=== PATIENT | female | born 1975 | race African-American/Black ===

== ENCOUNTER 2016-10-03 11:03 | Inpatient (IN) | payer OTHER ==
[~2016-10-03] VITALS: Ht 154.9 cm; Wt 73.9 kg
--- NOTE | ~2016-10-03 | CT2 ---
[facility] A Service of [facility] RADIOLOGY TEXT RESULTS PATIENT: CHAN WHITAKER LOCATION: C2A 242-01 : [birth year] UNIT #: [id number] AGE: [address]: Ruben Oneill MD SEX: F ORDER DR: [id number] [facility] [address] [place], [place] [address] [id number] I MR#: [id number] Acc #: [id number] NAME: CHAN WHITAKER : 1975 SEX: F STUDY DATE/TIME: 10/03/2016 15:44 UNIT: C2A ROOM: 242 STUDY DESCRIPTION: CT Abd and Pelv W Cont Attending Physician: Ruben Oneill M.D. Ordering Physician: Anthony Sosa M.D. Primary Care Physician: Katelyn Saeed A.P.R.N. MEDICAL IMAGING REPORT This report is preliminary unless electronic signature is present EXAMINATION CT abdomen and pelvis with contrast. DATE 10/03/2016 HISTORY 41-year-old female with abdominal pain, nausea, vomiting and diarrhea for 2 days. History of Crohn disease, hiatal hernia, hypertension and previous hysterectomy. COMPARISON CT of abdomen and pelvis with contrast 12/08/2015. TECHNIQUE This CT exam was performed with one or more of the following radiation dose reduction techniques: automatic exposure control, adjustment of mA and/or kV according to patient size, and iterative reconstruction. FINDINGS ABDOMEN FINDINGS: The colon is not opacified with enteric contrast at the time of image acquisition. The appendix is visualized, however, it appears normal. There is mild generalized air-fluid distension of multiple large and small bowel loops without evidence of high-grade obstruction. The distal ileum appears to have mild mucosal hyperenhancement and appears slightly narrowed, which may reflect changes of terminal ileitis in this patient with known history of Crohn disease. There is a second segment of small bowel within the midline of the abdomen which also appears to have generalized wall and fold thickening. No pneumatosis. No abscess. No free air. Lung bases are free of consolidation. Focal hepatic steatosis near the falciform ligament of the liver. Gallbladder, spleen, pancreas, adrenals STS. [facility] A Service of [facility] & [facility] RADIOLOGY TEXT RESULTS PATIENT: CHAN WHITAKER LOCATION: [facility] 242-01 : [birth year] UNIT #: [id number] AGE: [address]: Ruben Oneill MD SEX: F ORDER DR: and kidneys are within normal limits. PELVIS FINDINGS: Urinary bladder and rectum are normal. Hysterectomy. IMPRESSION 1. Short segments of mildly thickened and suspected inflamed small bowel in the midline of the abdomen and in the distal ileum may represent active small bowel inflammation in this patient with known history of Crohn disease. 2. No abscess. No evidence of high-grade bowel obstruction. No fistula. Dictated by... Lisa Cruz M.D. THIS IS AN ELECTRONICALLY VERIFIED REPORT Lisa Cruz M.D. at 10/04/2016 2:03 PM WILBUR/lisandra TD: 10/03/2016 22:37 JOB #: [id number] MEDICAL IMAGING REPORT Page 1 of 1 COPY
--- NOTE | ~2016-10-03 | CO ---
Unit #: [id number] #: [id number] Patient: CHAN HANCOCK [id number] [address] [address] [id number] I MR#: [id number] NAME: CHAN HANCOCK ROOM: 242 Age: 41 Sex: F Admission Date: 10/03/2016 : 1975 Attending Physician: Ruben Oneill M.D. Primary Care Physician: Claudia Saeed Consultation Date: 10/04/2016 CONSULTATION REPORT REASON FOR CONSULTATION Diarrhea and abdominal pain. HISTORY OF PRESENTING ILLNESS Ms. Hancock is a 41-year-old female. She has history of ulcerative colitis, which has been in remission. Four days ago, she started with abdominal pain and diarrhea, generalized abdominal pain, some distention, is moderate to severe in intensity. She has some nausea and vomiting also. There has not been any blood in the stool. She denies any fever or chills. She denies any recent antibiotic use or sick contacts. She has been on Asacol and Bentyl at home. PAST MEDICAL HISTORY Significant for ulcerative colitis, hypertension, migraine headaches. She is status post hysterectomy. Last colonoscopy was in 2016. SOCIAL HISTORY Smoker. Denies alcohol or drug abuse. FAMILY HISTORY Noncontributory. ALLERGIES None. REVIEW OF SYSTEMS Complete 10-point review of systems was done, which is negative other than as mentioned above. PHYSICAL EXAMINATION VITAL SIGNS: Stable. Afebrile. No acute distress. Temperature 97.8, pulse 89, blood pressure 114/93. HEENT: Pupils equal and reactive. Sclerae anicteric. Oral mucosa moist. NECK: No JVD. No lymphadenopathy. CHEST: Clear to auscultation bilaterally. CARDIOVASCULAR: Regular rate and rhythm. No murmurs. ABDOMEN: Significantly distended, gaseous. Mild tenderness. No guarding or rebound. No organomegaly or ascites. EXTREMITIES: Without clubbing, cyanosis, or edema. NEUROLOGIC: Intact grossly. SKIN: Warm and dry. DIAGNOSTIC STUDIES LABORATORY RESULTS: Hemoglobin and white count are normal. Chemistries Unit #: [id number] #: [id number] Patient: CHAN HANCOCK are unremarkable. IMAGING STUDIES: CT scan shows a small bowel inflammation in mid small bowel, possibility of Crohn disease was kept. She has over distention of both small and large bowel with no clear obstruction. ASSESSMENT AND PLAN The patient with possible flare up of ulcerative colitis, oblique Crohn disease. We will continue with steroids and antibiotics for now. I will get another KUB to look for any worsening small-bowel obstruction. We will keep her n.p.o. for now. Based on her progression, I will consider small bowel follow-through over next few days once the symptoms come down. We will continue with pain control also. Thank you, Dr. Oneill for this interesting consult. We will follow along. Dictated by... Aide Moore/troy TD: 10/04/2016 16:00 JOB #: [id number] CONSULTATION REPORT Page 1 of 1 X Beny Jung MD X CONSULTATION REPORT
--- NOTE | ~2016-10-03 | HP ---
Unit #: [id number] #: [id number] Patient: CHAN WHITAKER [id number] [facility]. [place], [place] [address] [id number] I MR#: [id number] NAME: CHAN WHITAKER ROOM: 58820 Age: 41 Sex: F Admission Date: 10/03/2016 : 1975 Attending Physician: Ruben Oneill M.D. Primary Care Physician: Katelyn Saeed A.P.R.N. HISTORY AND PHYSICAL CHIEF COMPLAINT Abdominal pain. HISTORY OF PRESENT ILLNESS The patient is a 41-year-old female who presents to the [place] emergency department with a complaint of abdominal pain. She states she ran out of her Crohn's medications three days ago. Since that time she has had progressive abdominal pain, now severe, associated with distention. No alleviating factors. She has had multiple episodes of bloody diarrhea. PAST MEDICAL HISTORY 1. Crohn disease. 2. Hypertension. 3. Goiter. 4. Migraines. PAST SURGICAL HISTORY Hysterectomy. SOCIAL HISTORY The patient smokes, drinks alcohol occasionally, denies illicit drug use. FAMILY HISTORY Diabetes, hyperlipidemia and cancer. ALLERGIES No known drug allergies. HOME MEDICATIONS Asacol, dicyclomine and Bentyl. REVIEW OF SYSTEMS A 10-point review of systems was obtained, negative except as per HPI. PHYSICAL EXAMINATION VITAL SIGNS: Temperature 97.8. Pulse 89. Blood pressure 114/93. GENERAL: A 41-year-old female in no acute distress, who appears stated age. HEENT: Pupils are equally round. Extraocular movements intact. Mucous membranes dry. NECK: Supple. No JVD. No lymphadenopathy. CARDIAC: Regular rate and rhythm. No murmurs, gallops or rubs. LUNGS: Clear to auscultation bilaterally. Unit #: [id number] #: [id number] Patient: CHAN WHITAKER ABDOMEN: Diffusely tender to palpation. It is distended but soft. EXTREMITIES: No cyanosis, clubbing or edema. They are warm and dry. PSYCHIATRIC: Alert and oriented x3. Affect is appropriate. NEUROLOGICAL: Cranial nerves II-XII intact grossly. The patient moves all extremities equally and with purpose. SKIN: No rashes, bruises or ulcers. MUSCULOSKELETAL: No muscle or joint pain. No muscle or joint swelling. DIAGNOSTIC STUDIES LABORATORY: Potassium 2.9, otherwise chemistries are normal. CBC is normal. Urine test is negative. ASSESSMENT AND PLAN 1. Crohn's flare: I have started the patient on IV steroids and Flagyl. Morphine for pain. 2. Hypokalemia: I have started the patient on potassium and magnesium protocol. 3. Prophylaxis: The patient has been started on SCDs. Dictated by Ruben Oneill M.D. KANDACE/hilda TD: 10/03/2016 20:28 JOB #: [id number] HISTORY AND PHYSICAL Page 1 of 1 X Ruben Oneill MD X HISTORY AND PHYSICAL
--- NOTE | ~2016-10-03 | DS ---
Unit #: [id number] #: [id number] Patient: CHAN WHITAKER [id number] [address] [address] [id number] I MR#: [id number] NAME: CHAN WHITAKER ROOM: 242 Age: 41 Sex: F Admission Date: 10/03/2016 : 1975 Discharge Date: 10/08/2016 Attending Physician: Ruben Oneill M.D. Primary Care Physician: Claudia Saeed DISCHARGE SUMMARY DISCHARGE DIAGNOSES 1. Crohn flare. 2. Acute pain. HOSPITAL COURSE Patient is a 41-year-old female admitted October 03, 2016, secondary to abdominal pain. She noted onset of symptoms after running out of her Crohn medication three days prior. She described the pain as severe and it was associated with multiple episodes of bloody diarrhea. Patient was admitted as CT showed findings consistent with inflammatory bowel disease. Patient was started on IV steroids and antibiotics. She received IV morphine for her pain. The patient's diarrhea resolved quickly on IV steroids and the patient did then become somewhat constipated. She underwent small bowel follow through which showed normal small bowel without evidence of any luminal narrowing, stricture, or abnormality. Given resolution of her symptoms and toleration of a diet, the patient is being discharged home on prednisone taper and Flagyl. Prescription has been provided for her Asacol. DISCHARGE MEDICATIONS 1. Bentyl 20 mg p.o. daily. 2. Asacol 800 mg daily. 3. Omeprazole 40 mg daily. 4. Flagyl 500 mg p.o. t.i.d. 5. Prednisone taper. DISCHARGE DIET As tolerated. FOLLOWUP The patient should follow up with Dr. Jung as needed. Dictated by... Ruben Oneill M.D. [facility]/ Unit #: [id number] #: [id number] Patient: CHAN WHITAKER TD: 10/09/2016 16:32 JOB #: [id number] DISCHARGE SUMMARY Page 1 of 1 X Ruben Oneill MD X DISCHARGE SUMMARY
--- NOTE | ~2016-10-03 | CR4 ---
[facility] A Service of [facility] & [facility] RADIOLOGY TEXT RESULTS PATIENT: CHAN WHITAKER LOCATION: C2A 242-01 : [birth year] UNIT #: [id number] AGE: [address]: Ruben Oneill MD SEX: F ORDER DR: [id number] [facility] [address] [place], [place] [address] [id number] I MR#: [id number] Acc #: [id number] NAME: CHAN WHITAKER : 1975 SEX: F STUDY DATE/TIME: 10/04/2016 14:52 UNIT: C2A ROOM: 242 STUDY DESCRIPTION: CR Abdomen Flat Upright or Dec Attending Physician: Ruben Oenill M.D. Ordering Physician: Beny Jung M.D. Primary Care Physician: Claudia Win Aprn [facility] MEDICAL IMAGING REPORT This report is preliminary unless electronic signature is present EXAM Supine upright radiographs of the abdomen and pelvis 10/04/2016 HISTORY Abdomen pain, distension, diarrhea. History of Crohn disease and hernia. FINDINGS Comparison to CT abdomen and pelvis 10/03/2016. The visualized pulmonary parenchyma is clear. Heart [id number] limits of normal in size. The bowel gas pattern shows air distended loops of small bowel and colon throughout the abdomen and pelvis with air seen throughout the colon to the rectum. Similar appearance on CT examination yesterday. The loop of inflamed thickened distal ileum is not identified on the plain radiograph. There is no indication of high-grade small bowel obstruction. The air distended loops of small bowel and colon could be a reflection of mild generalized ileus. Of note the patients oral contrast load from yesterday's study is not evident on the current radiograph also favoring the lack of any significant obstruction. There is no free air. Where visible the solid organ contours are unremarkable. Dictated by... Clayton Cruz M.D. THIS IS AN ELECTRONICALLY VERIFIED REPORT Clayton Cruz M.D. at 10/07/2016 5:44 PM VOLODYMYR/jessica TD: 10/05/2016 04:03 JOB #: [id number] MEDICAL IMAGING REPORT Page 1 of 1 COPY
--- NOTE | ~2016-10-03 | CR236 ---
[facility] A Service of [facility] & [facility] RADIOLOGY TEXT RESULTS PATIENT: CHAN WHITAKER LOCATION: A 242-01 : [birth year] UNIT #: [id number] AGE: [address]: Ruben Oneill MD SEX: F ORDER DR: [id number] [facility] [address] [place], [place] [address] [id number] I MR#: [id number] Acc #: [id number] NAME: CHAN WHITAKER : 1975 SEX: F STUDY DATE/TIME: 10/07/2016 10:43 UNIT: C2A ROOM: [facility] STUDY DESCRIPTION: CR Small Bowel Sbft W Films Attending Physician: Ruben Oneill M.D. Ordering Physician: Beny Jung M.D. Primary Care Physician: Katelyn Saeed A.P.R.N. MEDICAL IMAGING REPORT This report is preliminary unless electronic signature is present EXAM Small bowel follow through, date of study 10/07/2016 HISTORY Crohn disease, lower abdominal pain for 2 days, diarrhea. FINDINGS There is no dilated or thickened or irregular loops of small bowel. The terminal ileum is normal. The patient is certainly tender in the right lower quadrant but without radiographic correlate. IMPRESSION Tenderness in the right lower quadrant but otherwise normal small bowel follow through without evidence of luminal narrowing, stricture or other abnormality. Dictated by... Jeffery Mast M.D. THIS IS AN ELECTRONICALLY VERIFIED REPORT Jeffery Mast M.D. at 10/11/2016 4:54 PM TEV/psc TD: 10/08/2016 03:50 JOB #: [id number] MEDICAL IMAGING REPORT Page 1 of 1 COPY
[~2016-10-03 11:03] MED LIST: ASACOL HD800 MG; BACLOFEN10 MG PO; BENTYL10 M1; BENTYL20 M1 PO; CATAPRES-TTS-20.2 M1; IMITREX; LISINOPRIL PO; NEURONTIN100 MG PO; PEPCID AC20 M2 PO; PROPRANOLOL HCL10 MG; PROPRANOLOL HCL10 MG PO; ZOFRAN ODT4 MG PO
[2016-10-03 11:57] LABS: BASOPHIL% 0.6 % (0-2.5); DIFF IND NO; EOSINOPHIL# 0.1 X10e3 (0-0.7); EOSINOPHIL% 2.5 % (0.0-7.0); HEMATOCRIT 44.9 % (35.0-45.0); HEMOGLOBIN 14.7 gm/dL (12.0-16.0); LYMPHOCYTE# 1.6 X10e3 (1.0-3.5); LYMPHOCYTE% 27.9 % (17.0-45.0); MEAN CORPUSCULAR HEMOGLOBIN 28.1 PG (28-34); MEAN CORPUSCULAR HGB CONC 32.6 g/dL (30-36); MEAN PLATELET VOLUME 7.8 FL (6.5-11.5); MONOCYTE# 0.6 X10e3 (0-1.0); MONOCYTE% 11.1 % (3.0-12.0); NEUTROPHIL# 3.4 X10e3 (1.5-7.1); NEUTROPHIL% 57.9 % (40-75); PLATELET COUNT 278 X10e3 (140-420); RED BLOOD COUNT 5.22 X10e (3.90-5.30); RED CELL DISTRIBUTION WIDTH 14.5 % (11.0-15.5); WHITE BLOOD COUNT 5.8 X10e3 (4.0-10.5)
[2016-10-03 12:17] LABS: ALBUMIN SERUM 3.9 g/dL (3.5-5.0); BILIRUBIN, DIRECT 0.1 mg/dL (0.0-0.2); BILIRUBIN,TOTAL 0.1 mg/dL (0.2-2.0); BUN/CREATININE RATIO 23.33; CALCIUM SERUM 9.1 mg/dL (8.4-10.2); CREATININE SERUM 0.6 mg/dL (0.6-1.4); GLOM FILT RATE Estimated 133.1 mL/min (>60); PROTEIN TOTAL SERUM 7.3 g/dL (6.0-8.3)
[2016-10-03 12:18] LABS: POTASSIUM 2.9 mmol/L (3.5-5.1)
[2016-10-03 13:38] LABS: URINE SOURCE CLEAN CATCH
[2016-10-03 13:47] LABS: URINE APPEARANCE CLEAR; URINE BILIRUBIN NEG (NEG); URINE BLOOD 1+ (NEG); URINE COLOR DK YELLOW; URINE GLUCOSE NEG (NEG); URINE KETONE 2+ (NEG); URINE LEUKOCYTE ESTERASE TRACE (NEG); URINE NITRATE NEG (NEG); URINE PROTEIN TRACE (NEG); URINE SPECIFIC GRAVITY 1.028 (1.003-1.035)
[2016-10-03 13:49] LABS: CULTURE INDICATED? YES; URBCS1 AUWI 25-50 /[HPF] (0-2); URINE BACTERIA AUWI 1+ (NEGATIVE); URINE SQUAMOUS EPITHELIAL CELL OCC /[HPF]
[2016-10-04 06:53] LABS: POTASSIUM 4.3 mmol/L (3.5-5.1)
[2016-10-05 06:29] LABS: HEMATOCRIT 40.5 % (35.0-45.0); HEMOGLOBIN 13.2 gm/dL (12.0-16.0); MEAN CELL VOLUME 86.9 FL (83-96); MEAN CORPUSCULAR HEMOGLOBIN 28.3 PG (28-34); MEAN CORPUSCULAR HGB CONC 32.5 g/dL (30-36); MEAN PLATELET VOLUME 7.5 FL (6.5-11.5); RED BLOOD COUNT 4.66 X10e (3.90-5.30); RED CELL DISTRIBUTION WIDTH 14.4 % (11.0-15.5)
[2016-10-05 06:30] LABS: WHITE BLOOD COUNT 15.2 X10e3 (4.0-10.5)
[2016-10-05 07:21] LABS: ALBUMIN SERUM 3.4 g/dL (3.5-5.0); BILIRUBIN,TOTAL 0.3 mg/dL (0.2-2.0); BUN/CREATININE RATIO 7.14; CREATININE SERUM 0.7 mg/dL (0.6-1.4); GLOM FILT RATE Estimated 126.5 mL/min (>60); POTASSIUM 3.8 mmol/L (3.5-5.1); PROTEIN TOTAL SERUM 6.5 g/dL (6.0-8.3)
[2016-10-06 06:39] LABS: CALCIUM SERUM 8.8 mg/dL (8.4-10.2); CARBON DIOXIDE 27 mmol/L (22-31); CHLORIDE 102 mmol/L (100-111); CREATININE SERUM 0.6 mg/dL (0.6-1.4); GLOM FILT RATE Estimated 133.1 mL/min (>60); GLUCOSE FASTING 123 mg/dL (70-110); MAGNESIUM 1.9 mg/dL (1.6-3.0); POTASSIUM 3.5 mmol/L (3.5-5.1); SODIUM 136 mmol/L (135-145)
[2016-10-06 06:40] LABS: BLOOD UREA NITROGEN <5 mg/dL (9-23); BUN/CREATININE RATIO 8.33
[2016-10-07 06:20] LABS: HEMATOCRIT 40.9 % (35.0-45.0); HEMOGLOBIN 13.1 gm/dL (12.0-16.0); MEAN CELL VOLUME 87.7 FL (83-96); MEAN CORPUSCULAR HEMOGLOBIN 28.1 PG (28-34); MEAN PLATELET VOLUME 7.9 FL (6.5-11.5); RED BLOOD COUNT 4.67 X10e (3.90-5.30); RED CELL DISTRIBUTION WIDTH 14.7 % (11.0-15.5); WHITE BLOOD COUNT 19.1 X10e3 (4.0-10.5)
[2016-10-07 06:41] LABS: ALBUMIN SERUM 3.3 g/dL (3.5-5.0); BILIRUBIN,TOTAL 0.4 mg/dL (0.2-2.0); BUN/CREATININE RATIO 14.28; CALCIUM SERUM 8.8 mg/dL (8.4-10.2); CREATININE SERUM 0.7 mg/dL (0.6-1.4); GLOM FILT RATE Estimated 126.5 mL/min (>60); MAGNESIUM 2.3 mg/dL (1.6-3.0); POTASSIUM 4.3 mmol/L (3.5-5.1); PROTEIN TOTAL SERUM 6.3 g/dL (6.0-8.3)
[2016-10-07] MEDS ORDERED: OMEPRAZOLE40 M1 PO (23:32)
[2016-10-07] MEDS ORDERED: ASACOL HD800 MG PO (23:32)
[2016-10-07] MEDS ORDERED: DICYCLOMINE HCL20 MG PO (23:33)
[2016-10-08] MEDS ORDERED: NORVASC10 MG PO (01:45)
[2016-10-08 07:10] LABS: ALBUMIN SERUM 3.4 g/dL (3.5-5.0); BILIRUBIN,TOTAL 0.5 mg/dL (0.2-2.0); BUN/CREATININE RATIO 17.14; CALCIUM SERUM 9.3 mg/dL (8.4-10.2); CREATININE SERUM 0.7 mg/dL (0.6-1.4); GLOM FILT RATE Estimated 126.5 mL/min (>60); POTASSIUM 4.9 mmol/L (3.5-5.1); PROTEIN TOTAL SERUM 6.5 g/dL (6.0-8.3)
[2016-10-08 08:34] LABS: HEMATOCRIT 40.6 % (35.0-45.0); HEMOGLOBIN 13.3 gm/dL (12.0-16.0); MEAN CELL VOLUME 87.2 FL (83-96); MEAN CORPUSCULAR HEMOGLOBIN 28.6 PG (28-34); MEAN CORPUSCULAR HGB CONC 32.9 g/dL (30-36); RED BLOOD COUNT 4.66 X10e (3.90-5.30); RED CELL DISTRIBUTION WIDTH 14.8 % (11.0-15.5); WHITE BLOOD COUNT 17.2 X10e3 (4.0-10.5)
[2016-10-08] MEDS ORDERED: PREDNISONE PO (11:48)
[2016-10-08] MEDS ORDERED: FLAGYL PO (11:49)
== END 2016-10-08 18:40 | disposition home or self-care (01) | DRG 387 ==
LOC: CED 11:03 → C2A 19:11 → CEDOF 19:11 → CED 19:41 → C2A 20:46 → CEDOF 20:46 → C2A 10-08 18:40
PROVIDERS: Emergency Medicine; Internal Medicine; Internal Medicine Endocrinology, Diabetes & Metabolism
DX: K50.90 Crohn's disease, unspecified, without complications (principal); I10 Essential (primary) hypertension; K59.00 Constipation, unspecified; E87.6 Hypokalemia; F17.200 Nicotine dependence, unspecified, uncomplicated; Z90.710 Acquired absence of both cervix and uterus; Z80.9 Family history of malignant neoplasm, unspecified; Z83.3 Family history of diabetes mellitus
CPT/HCPCS: 36415; 74020; 74177; 74250; 80048; 80053; 80076; 81003; 83690; 83735; 84132; 84703; 85025; 85027; 86140; 87045; 87086; 87088; 87186; 87427; 87493; 87899; 96361; 96372; 96374; 96375; 96376; 99285; J0500; J1956; J2270; J2405; J2550; J2920; J3475; Q9967

== ENCOUNTER 2016-10-17 05:55 | Observation (INO) | payer OTHER ==
[~2016-10-17] VITALS: Ht 154.9 cm; Wt 70.4 kg
--- NOTE | ~2016-10-17 | CT2 ---
[facility] A Service of [facility] & [facility] RADIOLOGY TEXT RESULTS PATIENT: CHAN WHITAKER LOCATION: C2A 219-01 : [birth year] UNIT #: [id number] AGE: [address]: Heidi Flores MD SEX: F ORDER DR: [id number] [facility] [address] [place], [place] [address] [id number] I MR#: [id number] Acc #: [id number] NAME: CHAN WHITAKER : 1975 SEX: F STUDY DATE/TIME: 10/18/2016 14:21 UNIT: C3A PCU ROOM: [facility] STUDY DESCRIPTION: CT Abd and Pelv W Cont Attending Physician: Heidi Flores M.D. Ordering Physician: Heidi Flores M.D. Primary Care Physician: Katelyn Saeed A.P.R.N. MEDICAL IMAGING REPORT This report is preliminary unless electronic signature is present EXAM CT abdomen and pelvis with contrast. INDICATIONS Rectal bleeding and abdominal pain starting 10/17/16. COMPARISON STUDY 10/03/16, Crohn disease. TECHNIQUE Axial 5 mm images were obtained through the abdomen and pelvis with IV contrast. Patient was given 100 mL of Isovue 70. Sagittal and coronal reconstructions were generated. This CT exam was performed with one or more of the following radiation dose reduction techniques: automatic exposure control, adjustment of mA and/or kV according to patient size, and iterative reconstruction. FINDINGS The lung bases are clear. The liver, gallbladder, spleen, pancreas, adrenal glands, and kidneys are normal. The oral contrast did not yet reach the distal small bowel. The appendix is normal. The prior study suggested inflammation affecting the distal ileum. That is not seen on the current exam. It is difficult to visualize the terminal ileum. No bowel inflammation is identified. The bladder is normal. The uterus has been removed. There are no adnexal masses. IMPRESSION 1. Patient is status post hysterectomy. 2. Prior study two weeks ago suggested some active Crohn with enhancement and thickening of the distal ileum but that is no longer visible. It is very difficult to clearly see the distal ileum. It is unopacified on today's study. Study is otherwise normal. [facility] A Service of [facility] RADIOLOGY TEXT RESULTS PATIENT: CHAN WHITAKER LOCATION: [facility] 219-01 : [birth year] UNIT #: [id number] AGE: [address]: Heidi Flores MD SEX: F ORDER DR: Dictated by... Abundio Simons M.D. THIS IS AN ELECTRONICALLY VERIFIED REPORT Abundio Simons M.D. at 10/20/2016 9:07 AM DANIEL/tuan TD: 10/19/2016 11:03 JOB #: [id number] MEDICAL IMAGING REPORT Page 1 of 1 COPY
--- NOTE | ~2016-10-17 | HP ---
Unit #: [id number] #: [id number] Patient: CHAN WHITAKER [id number] [address] [place], [place] [address] [id number] I MR#: [id number] NAME: CHAN WHITAKER ROOM: 335 Age: 41 Sex: F Admission Date: 10/17/2016 : 1975 Attending Physician: Raheel Marvin M.D. Primary Care Physician: Katelyn Saeed A.P.R.N. HISTORY AND PHYSICAL CHIEF COMPLAINT Rectal bleeding and abdominal pain. HISTORY OF PRESENT ILLNESS The patient is a 41-year-old female with a history of ulcerative colitis/Crohn disease, recently discharged from the hospital on October 08, who presented to the emergency room last night complaining of abdominal pain. The patient drank heavily and snorted two lines of cocaine and is complaining of severe, sharp chest pain in the epigastric region, 10 out of 10, nonradiating. Patient is also complaining of bloody diarrhea. Patient stated that patient has been compliant with her medications of Asacol and tapering prednisone. Denies any fever, denies any chills, and denies any nausea and vomiting. Patient is being admitted for the above reasons. PAST MEDICAL HISTORY 1. Crohn disease. 2. Hypertension. 3. Goiter. 4. Migraines. PAST SURGICAL HISTORY Hysterectomy. SOCIAL HISTORY Patient smokes a half a pack per day, drinks alcohol, vodka, (1) , and illicit drug abuse with cocaine. FAMILY HISTORY Diabetes, hyperlipidemia, and cancer. ALLERGIES No known drug allergies. HOME MEDICATIONS 1. Asacol. 2. Tapering dose of prednisone. REVIEW OF SYSTEMS Positive for rectal bleeding, positive for abdominal pain, positive for tremors and restlessness. All other systems have been reviewed and none. PHYSICAL EXAMINATION GENERAL: Patient is lying in bed not in acute distress. Unit #: [id number] #: [id number] Patient: CHAN WHITAKER VITAL SIGNS: Temperature 98.1, pulse 82, respiratory rate 15, blood pressure 133/98, and saturating 97% on room air. HEENT: Head atraumatic, normocephalic. Pupils equal, round, and reactive to light and accommodation. Dry mucous membranes. NECK: Supple. LUNGS: Decreased air entry at the bases. HEART: Regular rate and rhythm. ABDOMEN: Soft. Positive for tenderness at the epigastric region. EXTREMITIES: No cyanosis, no clubbing. Positive for resting tremors. PSYCHIATRIC: Anxious and nervousness. NEUROLOGIC: No gross focal motor deficit. MUSCULOSKELETAL: No muscle or joint pain. DIAGNOSTIC STUDIES LABORATORY: Urinalysis shows trace leukocyte esterase and 2+ blood. Lactic acid is 1.1. Urine drug screen is positive for cocaine. Sodium 142, potassium 3.5, chloride 108, bicarb 25, glucose 98, BUN 8, creatinine 0.6, AST 21, ALT 27, and albumin 3.9. Lipase 55. Magnesium 2.3. WBC 15.7, hemoglobin 14.5, hematocrit 43.7, and platelets 289,000. IMAGING: Abdominal series shows there are several air-distended small bowel loops within the mid abdomen slightly to the right of midline. However, the degree of gaseous distention of small bowel has improved since October 04, 2016, and the colonic distention has improved as well. Enteric contrast has passed from the small bowel study of October 07. A small amount of residual enteric contrast remains in the sigmoid colon. Therefore, clinically significant or high-grade small bowel obstruction is thought unlikely. No acute chest findings. ASSESSMENT 1. Abdominal pain. 2. Alcohol intoxication with alcohol level of 231. 3. History of Crohn disease. PLAN Admit the patient to observation with telemetry. Continue IV fluids with D5 normal saline at 125 mL/hour. Continue with CIWA protocol. Will have GI evaluation for the bloody stools with history of Crohn disease. Continue with tapering prednisone and Asacol, and further recommendations will follow. Dictated by Aide Oliveira TD: 10/17/2016 16:54 JOB #: [id number] Unit #: [id number] #: [id number] Patient: CHAN WHITAKER HISTORY AND PHYSICAL Page 1 of 1 X RAHEEL MARVIN MD X HISTORY AND PHYSICAL
--- NOTE | ~2016-10-17 | CO ---
Unit #: [id number] #: [id number] Patient: CHAN HANCOCK [id number] [address] [place], [place] [address] [id number] I MR#: [id number] NAME: CHAN HANCOCK ROOM: 339 Age: 41 Sex: F Admission Date: 10/17/2016 : 1975 Attending Physician: Heidi Flores M.D. Primary Care Physician: Katelyn Saeed A.P.R.N. Consultation Date: 10/18/2016 CONSULTATION REPORT REFERRING PHYSICIAN Dr. Maurisio Marvin. REASON FOR CONSULTATION Rectal bleeding, abdominal pain. HISTORY OF PRESENT ILLNESS Ms. Hancock is a 41-year-old -[place] female. She was just discharged from hospital. It has been a week ago. Presented with abdominal pain. States she has been having some blood in the stool also; however, on my interview, she says her stool is brown. She has had some nausea and vomiting. She apparently has been drinking heavily and also did some cocaine since discharged from the hospital. She also had chest pain which is being evaluated. She denied any fever, chills. She apparently was not taking her colitis medications at home. PAST MEDICAL HISTORY 1. Crohn versus ulcerative colitis. 2. Hypertension. 3. Goiter. PAST SURGICAL HISTORY She is status post hysterectomy. SOCIAL HISTORY Alcohol/drug abuse, smoker. FAMILY HISTORY Noncontributory. ALLERGIES None. HOME MEDICATIONS 1. Asacol, not likely taking. 2. Prednisone taper. REVIEW OF SYSTEMS A complete 10-point review of systems was done which was unremarkable other than as mentioned above. PHYSICAL EXAMINATION VITAL SIGNS: Stable. GENERAL: No acute distress. Unit #: [id number] #: [id number] Patient: CHAN HANCOCK HEENT: Pupils equal and reactive. Sclerae anicteric. Oral mucosa moist. NECK: No JVD. No lymphadenopathy. CHEST: Clear to auscultation bilaterally. CARDIOVASCULAR: Regular rate and rhythm. No murmurs. ABDOMEN: Mildly distended. Gaseous. No tenderness. No peritoneal signs. No organomegaly. No ascites. EXTREMITIES: Without clubbing, cyanosis, or edema. NEUROLOGIC: Intact grossly. No focal sensory or motor deficits. DIAGNOSTIC STUDIES LABORATORY: Normal hemoglobin. IMAGING: CT scan shows some bowel loop dilation; however, it has significantly improved since last time a few weeks ago. Of note, her small bowel follow through recently did not show any obstructive small bowel lesions. ASSESSMENT AND PLAN 1. Patient at this time does not show any signs of acute flare up of Crohn disease or bleeding. Her hemoglobin is stable. If she has drop in hemoglobin or overt bleeding, consider colonoscopy. Otherwise, I will continue with Asacol for now. 2. Abdominal pain, nausea, chest pain: All of it seemed related to her alcohol binging and cocaine use. Symptomatic treatment for now. Thank you, Dr. Marvin, for this interesting consult. Will follow along. Dictated by... Aide Moore/lawrence TD: 10/19/2016 10:57 JOB #: [id number] CONSULTATION REPORT Page 1 of 1 X Beny Jung MD X CONSULTATION REPORT
--- NOTE | ~2016-10-17 | CR2 ---
[facility] A Service of [facility] & [facility] RADIOLOGY TEXT RESULTS PATIENT: CHAN WHITAKER LOCATION: C3A 335-01 : 79 UNIT #: [id number] AGE: [address]: Heidi Flores MD SEX: F ORDER DR: [id number] [facility] [address] [place], [place] [address] [id number] MR#: [id number] #: [id number] NAME: CHAN WHITAKER : 1975 SEX: F STUDY DATE/TIME: 10/17/2016 9:59 UNIT: C3A PCU ROOM: [facility] STUDY DESCRIPTION: CR Abdomen Acute Series Attending Physician: Maurisio Marvin M.D. Ordering Physician: Rachel Villar M.D. Primary Care Physician: Claudia Win Aprn [facility] MEDICAL IMAGING REPORT This report is preliminary unless electronic signature is present EXAM Acute abdominal series 10/17/2016 HISTORY 41-year-old female with abdominal pain for 2 days. History of rectal bleeding and Crohn's disease. COMPARISON Flat and upright views of the abdomen 10/04/2016, small bowel follow through 10/07/2016. CT abdomen and pelvis 10/03/2016. FINDINGS Clear lungs. Heart size within normal limits. There are air distended loops predominantly of small bowel within the mid abdomen, slightly to the right of midline. Enteric contrast is seen within the sigmoid colon from previous small-bowel follow-through. There is mild colonic stool burden. No significant colonic distension is identified. No pneumatosis or free air is evident. IMPRESSION 1. There are several air distended small bowel loops within the mid abdomen slightly to the right of midline. However, the degree of gaseous distention of small bowel has improved since 10/04/2016, and the colonic distension has improved, as well. 2. Enteric contrast has passed from the small bowel study of 10/07/2016. Small amount of residual enteric contrast remains in the sigmoid colon. Therefore, clinically significant or high-grade small bowel obstruction is thought unlikely. 3. No acute chest findings. [facility] A Service of [facility] & [facility] RADIOLOGY TEXT RESULTS PATIENT: CHAN WHITAKER LOCATION: [facility] 335-01 : [birth year] UNIT #: [id number] AGE: [address]: Heidi Flores MD SEX: F ORDER DR: Dictated by... Lisa Cruz M.D. THIS IS AN ELECTRONICALLY VERIFIED REPORT Lisa Cruz M.D. at 10/18/2016 1:52 PM WILBUR/dakota TD: 10/17/2016 12:33 JOB #: [id number] MEDICAL IMAGING REPORT Page 1 of 1 COPY
[~2016-10-17 05:55] MED LIST changes: +ASACOL HD800 MG PO; +DICYCLOMINE HCL20 MG PO; +FLAGYL PO; +NORVASC10 MG PO; +OMEPRAZOLE40 M1 PO; +PREDNISONE PO
[2016-10-17 07:18] LABS: URINE SOURCE CATH
[2016-10-17 07:25] LABS: URINE APPEARANCE CLEAR; URINE BILIRUBIN NEG (NEG); URINE BLOOD 2+ (NEG); URINE COLOR YELLOW; URINE GLUCOSE NEG (NEG); URINE KETONE NEG (NEG); URINE LEUKOCYTE ESTERASE TRACE (NEG); URINE NITRATE NEG (NEG); URINE PROTEIN NEG (NEG); URINE SPECIFIC GRAVITY 1.013 (1.003-1.035)
[2016-10-17 07:26] LABS: BASOPHIL# 0.1 X10e3 (0-0.3); BASOPHIL% 0.5 % (0-2.5); EOSINOPHIL% 0.2 % (0.0-7.0); HEMATOCRIT 43.7 % (35.0-45.0); HEMOGLOBIN 14.5 gm/dL (12.0-16.0); LYMPHOCYTE# 4.8 X10e3 (1.0-3.5); LYMPHOCYTE% 30.5 % (17.0-45.0); MEAN CELL VOLUME 86.8 FL (83-96); MEAN CORPUSCULAR HEMOGLOBIN 28.7 PG (28-34); MEAN CORPUSCULAR HGB CONC 33.1 g/dL (30-36); MEAN PLATELET VOLUME 7.6 FL (6.5-11.5); MONOCYTE# 0.7 X10e3 (0-1.0); MONOCYTE% 4.5 % (3.0-12.0); NEUTROPHIL# 10.1 X10e3 (1.5-7.1); NEUTROPHIL% 64.3 % (40-75); PLATELET COUNT 289 X10e3 (140-420); RED BLOOD COUNT 5.03 X10e (3.90-5.30); RED CELL DISTRIBUTION WIDTH 15.4 % (11.0-15.5); WHITE BLOOD COUNT 15.7 X10e3 (4.0-10.5)
[2016-10-17 07:28] LABS: DIFF IND YES; URINE BACTERIA AUWI NEG (NEGATIVE); URINE SQUAMOUS EPITHELIAL CELL OCC /[HPF]; UWBCS1 AUWI 0-2 (0-5)
[2016-10-17 07:32] LABS: CULTURE INDICATED? NO
[2016-10-17 07:41] LABS: AMPHETAMINE NEG (NEG); BARBITURATES NEG (NEG); BENZODIAZEPINES NEG (NEG); COCAINE POS (NEG); MARIJUANA NEG (NEG); OPIATES NEG (NEG); TRICYCLIC ANTIDEPRESSANTS NEG (NEG); U METHADONE NEG (NEG)
[2016-10-17 07:47] LABS: ALBUMIN SERUM 3.9 g/dL (3.5-5.0); BILIRUBIN, DIRECT 0.1 mg/dL (0.0-0.2); BILIRUBIN,INDIRECT 0.2 mg/dL (0.0-0.9); BILIRUBIN,TOTAL 0.3 mg/dL (0.2-2.0); BUN/CREATININE RATIO 13.33; CALCIUM SERUM 8.4 mg/dL (8.4-10.2); CREATININE SERUM 0.6 mg/dL (0.6-1.4); GLOM FILT RATE Estimated 133.1 mL/min (>60); MAGNESIUM 2.3 mg/dL (1.6-3.0); POTASSIUM 3.5 mmol/L (3.5-5.1); PROTEIN TOTAL SERUM 6.9 g/dL (6.0-8.3)
[2016-10-17 08:05] LABS: ANISOCYTOSIS SL; PLATELET ESTIMATE NORMAL (NORMAL)
[2016-10-17] MEDS ORDERED: PATIENT'S PHARMACY (10:51)
[2016-10-17] MEDS ORDERED: BENTYL10 M1 PO (12:15)
[2016-10-17] MEDS ORDERED: AMLODIPINE BESY10 MG PO (12:16)
[2016-10-17] MEDS ORDERED: IMITREX50 MG PO (12:17)
[2016-10-17 21:44] LABS: THYROID STIMULATING HORMONE 0.5 uIU/ml (0.34-5.60)
[2016-10-17 21:51] LABS: FREE THYROXIN (T4) 1.07 ng/dL (0.58-1.64)
[2016-10-17 22:07] LABS: ALBUMIN SERUM 3.1 g/dL (3.5-5.0); BILIRUBIN,TOTAL 0.3 mg/dL (0.2-2.0); BUN/CREATININE RATIO 17.5; CALCIUM SERUM 8.2 mg/dL (8.4-10.2); CREATININE SERUM 0.8 mg/dL (0.6-1.4); GLOM FILT RATE Estimated 107.7 mL/min (>60); POTASSIUM 4.1 mmol/L (3.5-5.1); PROTEIN TOTAL SERUM 5.9 g/dL (6.0-8.3)
[2016-10-18 05:12] LABS: HEMATOCRIT 38.2 % (35.0-45.0); MEAN CELL VOLUME 86.8 FL (83-96); MEAN CORPUSCULAR HEMOGLOBIN 28.5 PG (28-34); MEAN CORPUSCULAR HGB CONC 32.9 g/dL (30-36); MEAN PLATELET VOLUME 6.9 FL (6.5-11.5); RED BLOOD COUNT 4.4 X10e (3.90-5.30); RED CELL DISTRIBUTION WIDTH 15.5 % (11.0-15.5)
[2016-10-18 05:23] LABS: HEMOGLOBIN 12.5 gm/dL (12.0-16.0)
[2016-10-18 05:52] LABS: BUN/CREATININE RATIO 18.33; CALCIUM SERUM 8.6 mg/dL (8.4-10.2); CREATININE SERUM 0.6 mg/dL (0.6-1.4); GLOM FILT RATE Estimated 133.1 mL/min (>60); POTASSIUM 4.1 mmol/L (3.5-5.1)
[2016-10-18 06:23] LABS: URINE SOURCE CLEAN CATCH
[2016-10-18 06:28] LABS: URINE APPEARANCE CLEAR; URINE BILIRUBIN NEG (NEG); URINE BLOOD TRACE (NEG); URINE COLOR YELLOW; URINE GLUCOSE NEG (NEG); URINE KETONE NEG (NEG); URINE LEUKOCYTE ESTERASE NEG (NEG); URINE NITRATE NEG (NEG); URINE PH 5.5 (5-8); URINE PROTEIN NEG (NEG); URINE UROBILINOGEN 0.2 MG/DL (NEG)
[2016-10-18 06:30] LABS: URBCS1 AUWI 0-2 /[HPF] (0-2); URINE BACTERIA AUWI NEG (NEGATIVE); URINE SQUAMOUS EPITHELIAL CELL NONE SEEN /[HPF]; UWBCS1 AUWI 0-2 (0-5)
[2016-10-19 06:38] LABS: HEMATOCRIT 39.5 % (35.0-45.0); HEMOGLOBIN 12.8 gm/dL (12.0-16.0); MEAN CELL VOLUME 87.1 FL (83-96); MEAN CORPUSCULAR HEMOGLOBIN 28.1 PG (28-34); MEAN CORPUSCULAR HGB CONC 32.3 g/dL (30-36); MEAN PLATELET VOLUME 7.9 FL (6.5-11.5); RED BLOOD COUNT 4.54 X10e (3.90-5.30); RED CELL DISTRIBUTION WIDTH 15.1 % (11.0-15.5)
[2016-10-19 06:42] LABS: WHITE BLOOD COUNT 24.4 X10e3 (4.0-10.5)
[2016-10-19 07:04] LABS: CALCIUM SERUM 9.3 mg/dL (8.4-10.2); CREATININE SERUM 0.6 mg/dL (0.6-1.4); GLOM FILT RATE Estimated 133.1 mL/min (>60); POTASSIUM 4.1 mmol/L (3.5-5.1)
[2016-10-20 06:39] LABS: HEMATOCRIT 38.6 % (35.0-45.0); HEMOGLOBIN 12.4 gm/dL (12.0-16.0); MEAN CELL VOLUME 87.1 FL (83-96); MEAN CORPUSCULAR HGB CONC 32.2 g/dL (30-36); MEAN PLATELET VOLUME 7.9 FL (6.5-11.5); RED BLOOD COUNT 4.43 X10e (3.90-5.30); RED CELL DISTRIBUTION WIDTH 15.7 % (11.0-15.5)
[2016-10-20 06:53] LABS: BUN/CREATININE RATIO 13.33; CALCIUM SERUM 8.8 mg/dL (8.4-10.2); CREATININE SERUM 0.6 mg/dL (0.6-1.4); GLOM FILT RATE Estimated 133.1 mL/min (>60); POTASSIUM 3.9 mmol/L (3.5-5.1)
[2016-10-20] MEDS ORDERED: MIRALAX17 GM PO (14:01)
== END 2016-10-20 15:44 | disposition home or self-care (01) ==
LOC: CED 05:55 → C3A PCU 10:45 → CEDOF 10:45 → CED 10:54 → CEDOF 10:54 → C3A PCU 11:34 → CEDOF 11:34 → C3A PCU 10-18 07:59 → C2A 10-19 16:32
PROVIDERS: Emergency Medicine; Family Medicine; Internal Medicine
DX: R10.9 Unspecified abdominal pain (principal); K50.90 Crohn's disease, unspecified, without complications; F10.129 Alcohol abuse with intoxication, unspecified; Y90.7 Blood alcohol level of 200-239 mg/100 ml; I10 Essential (primary) hypertension; E04.9 Nontoxic goiter, unspecified; F17.210 Nicotine dependence, cigarettes, uncomplicated; Z90.710 Acquired absence of both cervix and uterus
CPT/HCPCS: 36415; 51702; 74022; 74177; 80048; 80053; 80076; 80307; 81003; 83605; 83690; 83735; 84439; 84443; 85025; 85027; 86592; 96361; 96365; 96366; 96374; 96375; 96376; 99285; G0378; G0480; J2270; J2405; J2930; J3411; J7042; Q9967